=== PATIENT | male | born 1950 | race Caucasian/White ===

== ENCOUNTER 2024-01-26 10:45 | Outpatient (CLI) | payer MEDICARE, SELFPAY ==
--- NOTE | ~2024-01-26 | XR_ITS ---
Right Knee Technique: AP, lateral, and sunrise views were obtained. Clinical History: Injury Findings: No fracture or dislocation is seen. There is a probable osteochondral lesion of the medial femoral condyle.. Joint spaces are preserved without degenerative or erosive change. Soft tissues are unremarkable. No joint effusion is seen. Impression: Osteochondral lesion of the medial femoral condyle. Consider MR to further evaluate as indicated. Reviewed, dictated and finalized at location M. Impression: Osteochondral lesion of the medial femoral condyle. Consider MR to further eval uate as indicated.
== END 2024-01-26 10:46 | disposition home or self-care (01) ==
LOC: GOSHIMG 10:46
PROVIDERS: PCP Family Medicine; Visit Provider Family Medicine
DX: M25.561 Pain in right knee (principal)
CPT/HCPCS: 73564

== ENCOUNTER 2024-01-31 09:00 | Outpatient (CLI) | payer MEDICARE, SELFPAY ==
--- NOTE | ~2024-01-31 | MR_ITS ---
EXAMINATION: MR knee RT wo con DATE: 01/31/2024 09:32 INDICATION: Right knee pain. Internal derangement of right knee. TECHNIQUE: Magnetic resonance imaging (MRI) of the right knee was performed without intravenous contr ast. Sequences included axial PD-weighted FS FSE, coronal PD-weighted FSE and PD-weighted FS FSE, sag ittal PD-weighted FSE, and sagittal T2-weighted FS FSE. COMPARISON: Right knee radiographs 01/26/2024 FINDINGS: Medial compartment: There is a complex tear of body and posterior horn of medial meniscus. There is extensive partial thi ckness cartilage loss of tibial condyle and femoral condyle. There is full-thickness cartilage loss o f tibial condyle involving the medial articular surface. There is an insufficiency fracture of medial femoral condyle involving the lateral articular surface with 2 mm cortical depression and adjacent e cristel-like marrow signal intensity and subchondral cysts. There is full-thickness cartilage loss of fe moral condyle involving the central and medial articular surface. Osteophytes are noted. Lateral compartment: There is a vertical tear of body of lateral meniscus. There is partial-thickness cartilage loss of ti bial condyle, deep at the central articular surface. There is full-thickness cartilage loss of femora l condyle involving the central articular surface with intra-articular osteophyte. Patellofemoral compartment: There is deep partial-thickness cartilage loss of patellar medial facet and shallow partial-thickness cartilage loss of patellar lateral facet. There is deep partial-thickness cartilage loss of medial t rochlea and shallow partial-thickness cartilage loss of central and lateral trochlea. Osteophytes are noted. Ligaments and tendons: The anterior and posterior cruciate ligaments are normal. There are changes of prior sprains of media l collateral ligament and fibular collateral ligament characterized by thickening and increased signa l intensity proximally. There is mild patellar tendinopathy. Fluid: There is a moderate-sized knee joint effusion. There is a moderate-sized Miguel's cyst. There is mild prepatellar and superficial infrapatellar bursitis. IMPRESSION: 1. Insufficiency fracture of medial femoral condyle. 2. 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 3. Tears of medial and lateral menisci. 4. Moderate-sized knee joint effusion. 5. Moderate-sized Miguel's cyst. Reviewed, dictated and finalized at location A. IMPRESSION: 1. Insufficiency fracture of medial femoral condyle. 2. 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 3. Tears of medial and lateral menisci. 4. Moderate-sized knee joint effusion. 5. Moderate-sized Miguel's cyst.
== END 2024-01-31 09:01 | disposition home or self-care (01) ==
LOC: GOSHIMG 09:00
PROVIDERS: PCP Family Medicine; Visit Provider Family Medicine
DX: S83.231A Complex tear of medial meniscus, current injury, right knee, initial encounter (principal); S83.281A Other tear of lateral meniscus, current injury, right knee, initial encounter; S72.431A Displaced fracture of medial condyle of right femur, initial encounter for closed fracture; M94.261 Chondromalacia, right knee; M25.461 Effusion, right knee; M71.21 Synovial cyst of popliteal space [Baker], right knee; X58.XXXA Exposure to other specified factors, initial encounter
CPT/HCPCS: 73721

== ENCOUNTER 2024-09-09 14:57 | Outpatient (CLI) | payer MEDICARE, SELFPAY ==
--- OUTSIDE RECORDS SUMMARY | 2024-09-09 15:02 | XMS_ITS | CONTINUITY OF CARE DOCUMENT ---
Author Name saray so Address Unknown Organization [facility] Address [address] [place] [address] Phone [phone] Care Team Providers Care Decorating Instructor Name Role Phone Shashank PENNINGTON, Chioma Unavailable [phone] MARCY MEMBRENO Unavailable INSURANCE PROVIDERS Payer name Policy type / Coverage type [employer] red alliance party ID [facility] [employer] insurance [id number] [id number]
--- OUTSIDE RECORDS SUMMARY | 2024-09-09 15:02 | XMS_ITS | Clinical Summary ---
Author Organization [facility] Address [facility] [id number] [place] [address] Care Team Providers Care Merchandise Team Manager Name Role Phone Unavailable Primary Care Provider Unavailabl e Allergies Active Allergy Reactions Criticality Noted Date Comments Atorvastatin Hives 08/29/2023 Penicillins Rash Low 06/06/2018 Medications amLODIPine (NORVASC) 5 MG tabletIndications :Primary hypertension Take 1 tablet (5 mg total) by mouth daily. 90 tablet 3 3 Active desoximetasone (TOPICORT) 0.25 % cream APPLY TO AFFECTED AREA EVERY DAY NEEDED 4 Active fluticasone propionate (FLONASE) 50 MCG/ACT nasal sprayIndications: Dysfunction of inner ear, unspecified laterality 2 sprays by Nasal route daily. 50 g 1 4 Active losartan (COZAAR) 50 MG tabletIndications :Primary hypertension TAKE 1 TABLET BY MOUTH EVERY DAY 90 tablet 1 4 Active Active Problems Problem Noted Date Diagnosed Date History of colon polyps 07/07/2022 Muscle cramps 04/28/2021 Dermatitis 12/27/2012 Overview (06/25/2019): Description: sees derm and takes mycophenolate Erectile dysfunction of nonorganic origin 2012 Hypercholesterolemia 12/25/2012 Hypertension 12/25/2012 Overview (06/25/2019): Onset: 02/15/2007 Obstructive sleep apnea 12/25/2012 Overview (06/25/2019): Description: CPAP Resolved Problems Problem Noted Date Diagnosed Date Resolved Date Screening for prostate cancer 07/02/2020 07/06/2020 Routine general medical exam ination at a health care facility 07/02/2020 07/12/2021 Screening for prostate cancer 07/01/2019 01/03/2020 Need for prophylactic vaccin ation with combined [id number]-pzyitwpgc (DTP) vaccine 07/01/2019 01/03/2020 Encounter for preventive health examination 12/10/2012 01/03/2020 Encounters Date Type Department Care Team Description 06/26/2024 Scan [facility] INFO SRVCS Scanned, [facility] from Last 3 Months Immunizations Immunization Administration Dates Next Due Arexvy Respiratory Syncytial Virus (RSV, adjuvanted) 0.5 mL, PF 03/07/2023 Fluzone High Dose (IIV, triv alent, 0.5mL) 03/08/2024 Fluzone High Dose - >Age 65 (Prefilled Syringe) 04/26/2021 Influenza (Generic) 01/27/2014,01/22/2007 Influenza Adult (Generic) 03/08/2022,06/2021,03/23/2019,2017 Pneumococcal (Pneumovax 23) 02/15/2007 Pneumococcal (Prevnar 20) 07/26/2021 Shingrix 07/26/2021,04/26/2021 Td (Tenivac) preservative free 01/10/2002 Tdap (Adacel) 07/01/2019 Family History Medical History Relation Comments No Known Problems Daughter Coronary artery disease Father Diabetes Mother Stroke Sister 1 Lung Disease Sister 2 Relation Status Comments Brother Daughter Alive Father Mother Sister 1 Alive Sister 2 Alive Social History Tobacco Use Types Packs/Day Years Used Date Smoking Tobacco: Former Cigarettes Q uit: 1988 Passive Smoke Exposure: Past Smokeless Tobacco: Never Alcohol Use Standard Drinks/Week Comments Yes 5 (1 standard drink = 0.6 oz pur e alcohol) occ PHQ-2 Answer Date Recorded Patient Health Questionnaire-2 Score 1 07/25/2023 Sex and Gender Information Value Date Recorded Sex Assigned at Not on file Legal Sex Male 7:40 PM CDT Gender Identity Not on file Sexual Orientation Not on file 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[employer] Not 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 Not on file Not o n file Last Filed Vital Signs Vital Sign Reading Time Taken Comments Blood Pressure 130/78 09/29/2023 9:30 AM CDT Pulse 59 09/29/2023 9:14 AM CDT Temperature 36.8 C (98.2 F) 09/29/2023 9:14 AM CDT Respiratory Rate 15 07/25/2023 10:34 AM CDT Oxygen Saturation 98% 09/29/2023 9:14 AM CDT Inhaled Oxygen Concentration - - Weight 106.1 kg (234 lb) 09/29/2023 9:14 AM CDT Height 172.7 cm (5' 8) 07/25/2023 10:34 AM CDT Body Mass Index 35.58 07/25/2023 10:34 AM CDT Plan of Treatment Health Maintenance Due Date Last Done Comments Hepatitis C 1968 AAA SCREENING 12/10/2015 Annual Medicare Wellness Visit 07/03/2021 07/02/2020 PHQ-2 (Physician [place] [facility] [place]) 04/24/2024 07/25/2023 COVID-19 Vaccine ( season) 2024 03/08/2024, 03/07/2023, 03/08/2022, Additional history exists DTaP, Tdap and Td Vaccines (2 - Td or Tdap) 06/30/2029 07/01/2019, 01/10/2002 Colorectal Cancer Screening Colonoscopy (10 Years) 07/20/2032 07/20/2022, Pneumococcal Vaccine: 50+ Years Completed 07/26/2021, 02/15/2007 Zoster Vaccines Completed 07/26/2021, 04/26/2021 RSV Immunization or 60+ Years Completed 03/07/2023 Meningococcal B Vaccine Aged Out No l onger eligible based on patient's age to complete this topic Meningococcal Vaccine Aged Out No yuliana melvin eligible based on patient's age to complete this topic RSV Immunizations Under 20 Months Aged Out No longer eligible based on patient's age to complete this topic Procedures Procedure Name Priority Date/Time Associated Diagnosis Comments COLONOSCOPY GENERIC (SCAN ORDER) Routine 07/20/2022 from Last 3 Months or Most Recently Relevant to Health Maintenance Results * COLONOSCOPY (07/20/2022) us dA Beauchamp MD SCANNING Final Resul t [facility] from Last 3 Months or Most Recently Relevant to Health Maintenance Insurance [employer]
--- OUTSIDE RECORDS SUMMARY | 2024-09-09 15:02 | XMS_ITS | Patient Health Record ---
Author Organization [facility] Address [address] [place] [address] Care Team Providers Care Harness Fitter Name Role Phone Nito(retired) Ad PENNINGTON Primary Care Provid er Unavailable MIMI PENNINGTON, SATISH Unavailable REASON FOR REFERRAL No Information PLAN OF TREATMENT No Information Insurance Providers Payer Name Payer Address Payer Phone Subscriber Number Group Number Insured Name Patient Relationship to Insured Coverage Start Date Coverage End Date AARP-Medic are Complete [address] [address] [place] [address] [id number] Sujit Almeida Self - patient is the insured
--- NOTE | 2024-10-01 09:04 | P.SLEEP_ITS ---
Sleep Study Date of Study: 09/09/24 Ordering Provider: Bautista Sanchez APRN Interpreting Physician: Inga Moss DO Sleep Study Type: Split Polysomnogram Height: 1.73 m Weight: 108.862 kg Body Mass Index: 36.5 Neck Circumference (inches): 18 [place]: 5 Reason for Sleep Study Daytime hypersomnia, snoring, witnessed apneas Sleep History The patient is a 73-year-old male that had a sleep study ordered by his primary care for evaluation of sleep apnea. The patient was previously diagnosed with sleep apnea and is currently using CPAP his current machine is older than 5 years. He rarely awakens from sleep short of breath. He rarely awakens at night with heartburn, belching or cough. He frequently snores and is frequently loud enough that others complain. He occasionally has trouble sleeping when he has a cold. He rarely wakes up gasping for air throughout the night. He frequently has breathing problems at night observed by himself or others. He rarely sweats excessively at night. He rarely has heart palpitations or irregular heartbeats during night. He occasionally falls asleep during the day but rarely while driving. He denies sleep paralysis, cataplexy and hypnagogic/ hypnopompic hallucinations. He rarely has trouble at school or work due to sleepiness. He rarely has nightmares. He rarely remembers his dreams. He denies having thoughts racing through his mind. He rarely feels sad, depressed or anxious. He denies having muscular tension. He rarely notices parts of his body jerk. He occasionally kicks during the night. He rarely has crawling and aching feelings in his legs and rarely has leg pain during the night. He rarely grinds his teeth during sleep but never awakens with morning jaw pain. He is occasionally bothered by pain during the day but rarely awakened by pain during the night. He rarely wakes up feeling stiff in the morning. He rarely wakes up with sore or achy muscles. He rarely wakes up with pain in the neck, spine and other joints. He goes to bed at 10:30 p.m. on both weekdays she weekends. It takes him 10 minutes to fall asleep. He wakes up 5 times throughout the night for unknown reasons and is able to fall back asleep within a few minutes. He wakes up at 7:00 a.m. on both weekdays and weekends. He typically gets 7-9 hours of sleep per night. He will stay in bed for 2 minutes after waking up in the morning. He currently lives with his . He denies consuming any caffeinated beverages within 2 hours of bedtime. He denies engaging in physical exercise before bedtime. He will watch television before falling asleep. He denies taking naps in afternoon or the evening. He consumes 6 cups of caffeinated beverage per day. He has 3 alcoholic beverages per day. he quit smoking cigarettes 35 years ago. He denies recre ational drug use. [facility] Past Medical History Medical History Encounter to establish care with new provider Surgical History Surgical History H/O inguinal hernia repair Family History Family History Father Hypertension Depression Heart disease Mother Diabetes mellitus Sibling Diabetes mellitus Hypertension Heart disease Cerebrovascular accident Social History Social History Social History: pt reports caffeine- 8 cups coffee daily Smoking status: Former smoker Alcohol intake: current Alcohol use details: Beer/Whiskey Substance use: never Do You Feel Safe in your Home?: Yes Lack of Transportation: No Lack of Food: Never True Current Housing: I Have Housing Concerned About Future Housing: No Difficulty Paying Gas/Electric Bills: No Difficulty Paying for Meds: No Currently Unemployed: No Education: Bachelor's Degree Difficulty w/ Childcare or Family Care: No Living arrangements: with family Occupation/Education: retired Spiritual care concerns: No Agree to blood products: Yes Medications Home Medications ?Medication ?Instructions ?Recorded ?Confirmed ?Type fluticasone propionate 50 1 spray intranasal DAILY 01/25/24 07/23/24 History mcg/actuation nasal spray,suspension (Allergy Relief (fluticasone)) vitamins A,C,M-hkox-dfkwub 4,296 1 cap PO BID 01/25/24 07/23/24 History mcg-226 mg-90 mg capsule (PreserVision AREDS) amlodipine 5 mg tablet 5 mg PO DAILY #90 tabs 02/29/24 07/23/24 Rx atorvastatin 20 mg tablet 20 mg PO DAILY #90 tabs 02/29/24 07/23/24 Rx aspirin 81 mg tablet,delayed 81 mg PO DAILY 07/23/24 07/23/24 History release (Adult Aspirin Regimen) desoximetasone 0.25 % topical cream applic topical 07/23/24 07/23/24 History losartan 50 mg tablet See Rx Instructions .Route 08/12/24 Rx .COMPLEX #90 tabs Sleep Procedure A full night split study using the PeerReach SleepVenda multi-channel system recorded the standard physiologic parameters including EEG, EOG, submentalis EMG, anterior tibialis EMG, EKG, body position, nasal and oral airflow using nasal pressure sensor and thermistor.? Respiratory parameters of chest and abdominal movements were recorded with Respiratory Inductance Plethysmography belts. Oxygen saturation was recorded by pulse oximetry. Video monitoring was also performed. Sleep stages, periodic limb movements, and EEG arousals were scored in 30 second epochs according to the criteria of the AASM Scoring Manual. The Apnea-Hypopnea Index was calculated using CMS guidelines for definition of hypopnea with 4% O2 desaturations while scoring respiratory events. Sleep Architecture During the diagnostic portion of the study, the total recording time was 193.1 minutes. The total sleep time was 127.5 minutes. Sleep latency was 19.1 minutes.? REM latency was 120.5 minutes. Sleep Efficiency was 66.0%. The patient had 21 awakenings for an awakening index of 9.9. Wake after sleep onset time was 46.5 minutes. The patient spent 30.0 minutes, 23.5% of total sleep time in Stage N1. The patient spent 74.0 minutes, 58.0% in Stage N2. The patient spent 0.0 minutes, 0.0% in Stage N3. The patient spent 23.5 minutes, 18.4% in Stage REM sleep. At 12:50:45 AM the patient was placed on PAP treatment and was titrated at pressures ranging from 5 cm H20 up to 11 cm H20. During the treatment portion of the study, the total recording time was 345.1 minutes.? The total sleep time was 285.5 minutes. Sleep latency was 30.0 minutes. REM latency was 54.0 minutes. Sleep Efficiency was 82.7%. Wake after Sleep Onset time was 29.5 minutes. The patient spent 40.0 minutes, 14.0% of total sleep time in Stage N1. The patient spent 175.0 minutes, 61.3% in Stage N2. The patient spent 0.0 minutes, 0.0% in Stage N3. The patient spent 70.5 minutes, 24.7% in Stage REM. Respiratory Analysis During the diagnostic portion of the study, the patient had 25 hypopneas, 8 obstructive apneas and 2 central apneas for an overall Apnea Hypopnea Index of 16.5 events per hour. The REM Apnea Hypopnea Index was 20.4. The NREM Apnea Hypopnea Index was 17.9. The patient had a Central Apnea Hypopnea Index of 0.9. There was no evidence of David-Mitchell Respirations. During the treatment portion of the study, the patient had 11 hypopneas, 2 obstructive apneas and 3 central apneas for an overall Apnea Hypopnea Index of 3.4 events per hour. The REM Apnea Hypopnea Index was 2.6. The NREM Apnea Hypopnea Index was 3.6. The patient had a Central Apnea Hypopnea Index of 0.6. There was no evidence of David-Mitchell Respirations. The patient was started on CPAP 5 cm H2O and titrated to CPAP 11 cm H2O. The patient was able to fall asleep starting on CPAP 6 cm H2O. The patient was able to achieve REM sleep starting on CPAP 6 cm H2O. The patient was able to achieve a residual AHI less than 5 with both NREM and REM sleep on multiple pressure settings. On CPAP 11 cm H2O, the patient spent 53 minutes in NREM and 23 minutes in REM with 3 hypopneas, resulting in an AHI of 2.4. The patient had a sleep efficiency of 95% on this pressure setting. Arousals During the diagnostic portion of the study, there were a total of 80 arousals for an arousal index of 37.6.? There were 23 respiratory arousals for an index of 10.8. There were 17 periodic limb movement arousals for an index of 8.0.? There were 12 isolated limb movement arousals for an index of 5.6. There were 23 spontaneous arousals for an index of 10.8. During the treatment portion of the study, there were a total of 150 arousals for an index of 31.5.? There were 16 respiratory arousals for an index of 3.4. There were 87 periodic limb movement arousals for an index of 18.3.? There were 16 isolated limb movement arousals for an index of 3.4. There were 29 spontaneous arousals for an index of 6.1. Periodic Limb Movements During the diagnostic portion of the study, the patient had 17 isolated limb m ovements with an index of 8.0. The patient had 73 periodic limb movements with an index of 34.4, which is elevated (normal < 15). The patient had a total of 90 limb movements with a total limb movement index of 42.4. During the treatment portion of the study, the patient had 35 isolated limb movements with an index of 7.4. The patient had 306 periodic limb movements with an index of 64.3, which is elevated (normal < 15). The patient had a total of 341 limb movements with a total limb movement index of 71.7. Oximetry Data During the diagnostic portion of the study, the patient had an average oxygen saturation of 90.1% in wake with a minimum oxygen saturation of 73% and a maximum oxygen saturation of 96%. The patient had an average oxygen saturation of 89.7% in sleep with a minimum oxygen saturation of 84.0% and a maximum oxygen saturation of 95.0%. The patient had 45 oxygen desaturations resulting in an Oxygen Desaturation Index of 21.2. The patient spent 43.7 minutes, 22.9% of total sleep time with an oxygen saturation less than 88%. During the treatment portion of the study, the patient had an average oxygen saturation of 91.5% in wake with a minimum oxygen saturation of 88.0% and a maximum oxygen saturation of 97.0%. The patient had an average oxygen saturation of 92.5% in sleep with a minimum oxygen saturation of 87.0% and a maximum oxygen saturation of 98.0%. The patient had 25 oxygen desaturations resulting in an Oxygen Desaturation Index of 5.3. The patient spent 0.8 minutes, 0.2% of total sleep time with an oxygen saturation less than 88%. Snoring Profile Mild snoring was present in the baseline portion of the study. The snoring resolved once the patient was titrated to 11 cm H2O. Cardiac Profile The EKG lead showed normal sinus rhythm with occasional PVCs. During the diagnostic portion of the study, the average pulse rate was 60.7 bpm.? The minimum pulse rate was 51.0 bpm. The maximum pulse rate was 82.0 bpm. During the treatment portion of the study, the average pulse rate was 55.5 bpm.? The minimum pulse rate was 47.0 bpm. The maximum pulse rate was 84.0 bpm. EEG Profile No signs of seizure activity seen. Assessment and Plan Assessment and Plan (1) EMILY (obstructive sleep apnea): Code(s): G47.33 - Obstructive sleep apnea (adult) (pediatric) Status: Acute Assessment and Plan: In the baseline portion of the study, the patient had an overall AHI of 16.5 with desaturation down to 84%. This is consistent with moderate sleep apnea. The patient was started on CPAP 5 cm H2O and titrated to CPAP 11 cm H2O. I recommend that the patient be prescribed CPAP 11 cm H2O, size large Resmed AirTouch F20 full face mask, CPAP filters/tubing and heated humidity. This should be used with all episodes of sleep.? Compliance should be reviewed within 31-90 days of starting therapy for usage greater than 4 hours per night greater than 70% of the nights. The patient should be asked about symptoms such as?excessive daytime sleepiness, quality of sleep, decreased nocturia, increased?mental functioning such as memory, mood, and concentration. While the patient had frequent periodic limb movements throughout the study, the frequency decreased drastically decreased once the patient was titrated to the optimal pressure setting. I recommend asking the patient about leg movements during his first CPAP compliance visit. Data The data obtained during this sleep study is adequate for interpretation. Certification This sleep study has been reviewed by a board certified sleep medicine physician.
[2024-10-01 12:11] VITALS: BMI 36.5
== END 2024-09-10 07:00 | disposition home or self-care (01) ==
LOC: ANHCSM 14:59
PROVIDERS: PCP Student in an Organized Health Care Education/Training Program; Visit Provider Student in an Organized Health Care Education/Training Program
DX: G47.33 Obstructive sleep apnea (adult) (pediatric) (principal); G47.9 Sleep disorder, unspecified
CPT/HCPCS: 95811

== ENCOUNTER 2025-02-14 10:52 | Outpatient (CLI) | payer MEDICARE, SELFPAY ==
--- OUTSIDE RECORDS SUMMARY | 2025-02-14 11:15 | XMS_ITS | Patient Health Record ---
Author Organization [facility] Address [address] [place] [address] Care Team Providers Care Flatwork Catcher Name Role Phone Nito(retired) Ad PENNINGTON Primary Care Provid er Unavailable MIMI PENNINGTON, SATISH Unavailable Reason For Referral No Information Plan Of Treatment No Information Insurance Providers Payer Name Payer Address Payer Phone Subscriber Number Group Number Insured Name Patient Relationship to Insured Coverage Start Date Coverage End Date AARP-Medic are Complete [address] [address] [place] [address] [phone] [id number] Sujit Almeida Self - patient is the insured
--- OUTSIDE RECORDS SUMMARY | 2025-02-14 11:15 | XMS_ITS | Clinical Summary ---
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 [employer] Not on file Not on file [...] Date Last Done Comments Hepatitis C 1968 Annual Medicare Wellness Visit 07/03/2021 07/02/2020 PHQ-2 (Physician Norris) 04/24/2024 07/25/2023 COVID-19 Vaccine ( season) 2024 03/08/2024, 03/07/2023, 03/08/2022, Additional history exists Influenza Adult (#1) 2025 03/08/2024, 03/08/2022, 04/26/2021, Additional history exists DTaP, Tdap and Td Vaccines (2 - Td or Tdap) 06/30/2029 07/01/2019, 01/10/2002 Colorectal Cancer Screening Colonoscopy (10 Years) 07/20/2032 07/20/2022, Pneumococcal Vaccine: 50+ Years Completed 07/26/2021, 02/15/2007 Zoster Vaccines Completed 07/26/2021, 04/26/2021 RSV Immunization or 60+ Years Completed 03/07/2023 Hepatitis A Vaccines Aged Out No long er eligible based on patient's age to complete this topic Meningococcal B Vaccine Aged Out No l [...] Health Maintenance Results * COLONOSCOPY (07/20/2022) us Ad Beauchamp MD SCANNING Final Resul t [facility] ONBASE from Last 3 Months or Most Recently Relevant to Health Maintenance Insurance [facility] MEDICARE [facility] MEDICARE
[2025-02-14 13:11] LABS: Alanine Aminotransferase 33 U/L (6-50); Albumin Level 4.7 g/dL (3.5-5.1); Alkaline Phosphatase 66 U/L (38-126); Anion Gap 8 mmol/L (4-12); Aspartate Amino Transferase 54 U/L (17-59); Bilirubin,Total 0.7 mg/dL (0.2-1.3); Blood Urea Nitrogen 14 mg/dL (9-20); Calcium 9.2 mg/dL (8.4-10.2); Carbon Dioxide 28 mmol/L (22-30); Chloride 104 mmol/L (98-107); Cholesterol 180 mg/dL (0-200); Estimated Glomerular Filt Rate > 60; Glucose 119 mg/dL (65-110); HDL Direct 40 mg/dL; Potassium 4.3 mmol/L (3.4-5.0); Sodium 140 mmol/L (137-145); Total Protein 8.0 g/dL (6.3-8.2); Triglycerides 122 mg/dL (<150)
[2025-02-14 13:18] LABS: Hemoglobin A1C 6.0 % (<5.7)
== END 2025-02-14 10:53 | disposition home or self-care (01) ==
LOC: ANHGOSHLAB 10:52
PROVIDERS: PCP Student in an Organized Health Care Education/Training Program; Visit Provider Student in an Organized Health Care Education/Training Program
DX: E78.2 Mixed hyperlipidemia (principal); I10 Essential (primary) hypertension; E78.5 Hyperlipidemia, unspecified; R73.03 Prediabetes
CPT/HCPCS: 36415; 80053; 80061; 83036